=== PATIENT | male | born 1990 | race African-American/Black ===

== ENCOUNTER 2019-09-01 02:01 | Emergency (ER) | payer MEDICARE, SELFPAY ==
[2019-09-01] VITALS (8 sets, daily range): BP systolic 108–120; BP diastolic 54–67; PULSE 58–79; RESP 16–17; TEMP 36.2; O2SAT 97–100; BMI 35.2
--- NOTE | 2019-09-01 02:14 | ED.VISSUMM ---
- ER Visit Summary Date of Service: 09/01/19 Chief Complaint: Depressed and suicidal History of Present Illness: The patient is a 28 M who is homeless with a past medical history of bipolar and schizophrenia. He is also jdw-[id number]-[id number] diabetic on metformin. Patient is originally from [place]. [facility] And he has no place to stay. Patient states due to his overall circumstances and some events that happened the night he has had suicidal thoughts. No specific plan. He has not attempted suicide tonight. He has been hospitalized for psychiatric disorder in the past. Physical Examination: Young male no acute distress. Vital signs are stable. He is afebrile. He does not look septic or toxic. He does not appear to be under any obvious toxidrome. I do not smell any alcohol. H EENT exam unremarkable. Atraumatic. Pupils round reactive light. Neck nontender no lymphadenopathy. Lungs clear to auscultation bilaterally. Heart regular rhythm rate about 80. No murmur. Chest wall nontender. Abdomen soft nontender normal bowel sounds no peritoneal signs. No signs of trauma. Patient is moving all 4 extremities. No signs of trauma. No cutting. No bruising or deformity. Normal range of motion and strength. Back nontender. Neurologically is awake alert with no focal motor deficits. Test Results: CBC normal. Chemistries unremarkable. Tox screen positive for cannabis only. Alcohol negative. Emergency Department Course and Treatment: Patient with underlying psychiatric disorder. States that he is suicidal. His exam is unremarkable. Currently medically is cleared. I will have crisis come and evaluate the patient. Treatment Plan: Crisis has evaluated the patient. They need to talk to the prior psychiatric facility he was in in [place] to review his prior medical records. That would not occur until around 9:30 in the morning. Disposition is pending. Patient has been resting comfortably in the ER. Disposition: [] Impression: Acute depression History of bipolar and schizophrenia. Suicidal ideation This note was generated with [employer] dictation software. It may contain incorrect words, spelling, and punctuation that were not noted in review of the chart prior to signing ED Disposition - Plan for ED Patient: Referrals: NOT,DEFINED [NON-STAFF] -
--- NOTE | 2019-09-01 02:19 | ED.RN ---
DR. VILLALOBOS SAW PT DURING TRIAGE. NO SITER NEEDED OR SUICIDE PRECAUTIONS PER DR. VILLALOBOS.
--- NOTE | 2019-09-01 02:26 | ED.RN ---
PT STATED TO HE WAS SUICIDAL BECAUSE HE HAD NO PLACE TO SLEEP AND NO WAY TO GET BACK TO [place]. WHEN ASKED IF THE PT HAD A PLAN PT STATED NOT REALLY I'M JUST GONNA FREEZE TO OUTSIDE.
[2019-09-01 02:36] LABS: Bedside Glucose 118 mg/dL (70-110)
[2019-09-01 02:55] LABS: Amphetamine Urine VISTA NEGATIVE (<1000 ng/mL); Barbiturate Urine VISTA NEGATIVE (< 200 ng/mL); Benzodiazepine Urine VISTA NEGATIVE (< 200 ng/mL); Cocaine Urine VISTA NEGATIVE (< 300 ng/mL); Ecstacy Urine VISTA NEGATIVE (< 500 ng/mL); Methadone Urine VISTA NEGATIVE (< 300 ng/mL); PCP Urine VISTA NEGATIVE (< 25 ng/mL); THC Urine VISTA POSITIVE (< 50 ng/mL); Vista UDS pH Range 6
[2019-09-01 02:57] LABS: Absolute Neutrophil Count 4.1 X10^3/uL (2.0-7.7); Basophil# 0.03 X10^3/uL; Basophil% 0.5 % (0-1); Eosinophil# 0.07 X10^3/uL; Eosinophils% 1.1 % (0-5); Hemoglobin 15.8 g/dL (13.0-16.5); Lymphocyte % 25.7 % (19-41); Mean Corp Hgb Conc 32.2 g/dL (32-36); Mean Corpuscular Hgb 26.6 pg (27.0-32.0); Mean Corpuscular Volume 82.5 fL (80-94); Mean Platelet Vol. 10.1 fl (6.2-12.0); Monocyte% 6.4 % (0-10); NRBC Flagged by Analyzer 0 % (0-5); Neutrophil % 65.8 % (47-70); Platelet Count 239 K/mm3 (150-450); RBC Distribution Width CV 14.3 % (11.6-14.6); RBC Distribution Width SD 42.5 fl (35.1-43.9); Red Blood Count 5.94 M/mm3 (4.6-6.2); White Blood Count 6.2 K/mm3 (4.4-11.0)
[2019-09-01 03:07] LABS: Anion Gap 6 (5-15); BUN 8 mg/dL (7-18); BUN/Creat Ratio 8.3 RATIO (10-20); Calcium,Total 9.4 mg/dL (8.5-10.1); Chloride 104 mmol/L (98-107); Creatinine, Serum 0.96 mg/dL (0.70-1.30); EST Glomerular Filtration Rate 99 mL/min (>60); Est Glom Filt Rate - Afr Amer 120 mL/min (>60); Estimated Creatinine Clearance 111.82 ml/min; Glucose 101 mg/dL (74-106); Potassium 3.7 mmol/L (3.5-5.1); Sodium Level 139 mmol/L (136-145)
--- NOTE | 2019-09-01 13:27 | ED.RN ---
THIS RN ALONG WITH COLETTE MCGUIRE, CRISIS COUNSELOR AND . SPOKE WITH THE PATIENT ABOUT DISCHARGE. PT WAS TOLD HE WAS SAFE TO LEAVE AND MEDICALLY CLEARED BY BOTH OUR FACILITY AND THE COUNSELING CENTER. PT STATES HE HAS NO MONEY BUT OK THAT HE WILL LEAVE. PT WAS GIVEN ALL BELONGINGS ALONG WITH PHONE AND PHONE CORD TO START MAKING PHONE CALLS AND ARRANGEMENTS TO LEAVE. PT LEFT THE FACILITY WITH NO OTHER ISSUES.
== END 2019-09-01 13:27 | disposition home or self-care (01) ==
LOC: ED 02:54
PROVIDERS: Emergency Provider Emergency Medicine
DX: F32.9 Major depressive disorder, single episode, unspecified (principal); E11.9 Type 2 diabetes mellitus without complications; R45.851 Suicidal ideations; Z59.0 Homelessness; Z72.0 Tobacco use; Z79.84 Long term (current) use of oral hypoglycemic drugs; Z79.899 Other long term (current) drug therapy; Z86.59 Personal history of other mental and behavioral disorders
CPT/HCPCS: 80048; 80307; 80320; 82962; 85025; 99283; G0480

== ENCOUNTER 2019-09-01 22:05 | Emergency (ER) | payer MEDICARE, SELFPAY ==
[2019-09-01 02:02] VITALS: BMI 35.2
[2019-09-01 22:07] VITALS: BP 129/75; PULSE 68; RESP 16; TEMP 36.6; O2SAT 98; BMI 32.1
--- NOTE | 2019-09-01 23:11 | ED.VISSUMM ---
- ER Visit Summary Date of Service: 09/01/19 Chief Complaint: Depressed with suicidal ideation History of Present Illness: The patient is a 28 M 4 of xnk-coxcang-abatznjgk diabetes, bipolar and schizophrenia. Patient states he taken his medications. He is from [place]. He was up in [place]. He lost his ride home. Was actually seen by me last night in the emergency department had a negative work-up. Was seen for crisis and I believe they let him be discharged home. He has not been able to find a ride back to [place] as of yet. And police were called due to him being depressed and suicidal and he was brought in [facility]. He denies any attempt in the last 48 hours. Physical Examination: Young male no acute distress vital signs stable afebrile. He does not appear to be toxic. Or septic. No smell of alcohol. No signs of toxidromes. H EENT exam unremarkable. Neck nontender no lymphadenopathy. Lungs clear to auscultation bilaterally. Heart regular rhythm no murmur. Abdomen soft nontender normal bowel sounds no peritoneal signs. He is moving all 4 extremities. Neurovascular intact. No edema. No rashes. Back nontender. Skin normal. Neurologically is awake and alert with no focal motor or sensory deficits. Currently he is calm and relaxed. He is following commands. He is neither verbally or physically abusive. He is lying in bed. Test Results: Patient had a ED mental health evaluation done last night. His CBC and chemistries were normal. His tox screen was unremarkable other than positive for cannabis. And his alcohol was negative. These of all been done within the last 24 hours. Emergency Department Course and Treatment: Repeat crisis evaluation. Crisis came and evaluated the patient. The crisis personnel myself discussed the patient's history and work-up from the other day. Both the crisis personnel today and on the last visit within the last 24 hours felt the patient was safe to be discharged home as do I. There may be secondary gain here for the patient to have a place to sleep. He will be discharged. Treatment Plan: Follow-up with his counselors in [place]. Disposition: Discharge Impression: Acute on chronic depression Suicidal ideation History of bipolar and schizophrenia This note was generated with [employer] software. It may contain incorrect words, spelling, and punctuation that were not noted in review of the chart prior to signing ED Disposition - Plan for ED Patient: Referrals: Care Physician,No Primary [Primary Care Provider] -
--- NOTE | 2019-09-01 23:21 | ED.RN ---
CALLED CRISIS PER REQUEST OF MARIA GUADALUPE FERRER IS MANAGER OF RECRUITING
--- NOTE | 2019-09-01 23:23 | ED.RN ---
ANGIE CALLED BACK, HE IS AT [facility] AND WILL COME HERE WHEN DONE
[2019-09-01 23:24] VITALS: RESP 16
[2019-09-02 00:32] VITALS: RESP 16
--- NOTE | 2019-09-02 01:15 | ED.RN ---
THIS NURSE IN TO SPEAK WITH THE PT. HE DOES NOT HAVE A RIDE SCHEDULED AT 7AM LIKE HE TOLD THE DOCTOR AND MENTAL HEALTH COUNSELOR. [facility] HAS NO BEDS AND IS NOT TAKING PATIENTS D/T THE PANDEMIC
[2019-09-02 01:26] VITALS: BP 119/61; PULSE 56; RESP 14; O2SAT 97
[2019-09-02 02:04] VITALS: RESP 18
--- NOTE | 2019-09-02 02:11 | ED.DEP ---
ED Disposition - Plan for ED Patient: Disposition: Home or Assisted Living Instructions: Depression Additional Instructions: Follow up with your counseling personnel in [place].
[2019-09-02 02:40] VITALS: RESP 16
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
== END 2019-09-02 02:46 | disposition home or self-care (01) ==
PROVIDERS: Emergency Provider Emergency Medicine
DX: F31.9 Bipolar disorder, unspecified (principal); R45.851 Suicidal ideations; F20.9 Schizophrenia, unspecified; E11.9 Type 2 diabetes mellitus without complications; Z59.0 Homelessness; Z72.0 Tobacco use; Z79.84 Long term (current) use of oral hypoglycemic drugs; Z79.899 Other long term (current) drug therapy; Z86.59 Personal history of other mental and behavioral disorders
CPT/HCPCS: 80048; 80307; 80320; 82962; 85025; 99283; 99285; G0480